=== PATIENT | male | born 1960 | race Caucasian/White ===

== ENCOUNTER 2017-05-19 10:53 | Emergency (ER) | payer OTHER ==
[~2017-05-19] VITALS: Ht 182.9 cm; Wt 100.5 kg
[2017-05-19 12:35] VITALS: BP 139/81
== END 2017-05-19 12:36 | disposition home or self-care (01) ==
LOC: ED 10:53
DX: L29.9 Pruritus, unspecified (principal); M79.89 Other specified soft tissue disorders; T63.441A Toxic effect of venom of bees, accidental (unintentional), initial encounter; Y92.89 Other specified places as the place of occurrence of the external cause
CPT/HCPCS: J0171; J1200; J7512; J7620; Q0092